=== PATIENT | female | born 1970 | race Caucasian/White ===

== ENCOUNTER 2016-11-20 18:05 | Inpatient (IN) | payer MEDICARE, MEDICAID ==
[~2016-11-20] VITALS: Ht 154.9 cm; Wt 98.2 kg
--- NOTE | ~2016-11-20 | CON ---
PATIENT'S NAME: DIONICIO CARRANZALY Justin [facility] AGE: 46 Y [address] ROOM: [place] [address] LOCATION: GPCU ADMIT DATE: 11/20/2016 Consultation DISCHARGE DATE: FAMILY PHYSICIAN: Sophie Recio APRN ATTENDING PHYSICIAN: DENIS HENDRIX DATE OF CONSULTATION: 11/21/2016 REFERRING PHYSICIAN: JORDY ROBERSON MD CHIEF COMPLAINT: Headache, recurrence/progression of secondary glioblastoma. HISTORY OF PRESENT ILLNESS: The patient is a 46-year-old female patient who was admitted to the hospital with increasing headaches. The patient's history dates back to 2002. At that time, she underwent right craniotomy and resection of brain tumor. According to the family, the tumor was low-grade. She required no chemotherapy or radiation after that surgery. She did well for 5 years. In 2007, she was diagnosed with recurrent tumor and underwent repeat craniotomy and resection. She received chemotherapy and radiation after it. She did well until last year. In April 2016, she was diagnosed with recurrence/progression. She underwent reopening of the craniotomy and resection. The pathology was consistent with glioblastoma. She was treated with chemotherapy and radiation afterward. She was also continued on dexamethasone. She slowly tapered herself off the dexamethasone; and subsequently, she started experiencing headaches. Yesterday, she had a noncontrast CT head that showed increased edema in the surgical site suspicious for recurrence/progression. I met the patient on the gallegos. She reported severe headaches. She also reported vision loss on the left side. She also reported generalized weakness, swelling on the lower extremities. She denied seizures, weakness on her hands. PAST MEDICAL HISTORY: Hypertension, sleep apnea, and glioblastoma. REVIEW OF SYSTEMS: All points review of systems were asked about. Pertinent positives were mentioned. MEDICATIONS: Listed in the patient's chart. ALLERGIES: CODEINE, TYLENOL, AND PERCOCET. PATIENT'S NAME: DIONICIO CARRANZALY Justin [facility] AGE: 46 Y [address] ROOM: [place] [address] LOCATION: GPCU ADMIT DATE: 11/20/2016 Consultation DISCHARGE DATE: FAMILY PHYSICIAN: Sophie Recio APRN ATTENDING PHYSICIAN: DENIS HENDRIX FAMILY HISTORY: She has a strong family history of cancer, her mom has breast cancer. SOCIAL HISTORY: Nonsmoker. Occasional alcohol drinking. PHYSICAL EXAMINATION: GENERAL: The patient was cooperative and pleasant. HEAD: It showed hair loss in the craniotomy area. It also showed well-healed right occipitotemporal craniotomy scar. Pupils were 3-mm and reactive. NEUROLOGIC: She was alert and oriented. She was obeying commands on her 4 extremities. The pupils were 3-mm and reactive. Visual gamez were remarkable for complete left homonymous hemianopsia. Eye movements were full. No pronator drift. She has significant proximal weakness on the lower extremities. Ankle dorsiflexion, plantarflexion exam was normal. RESPIRATORY: She was not in any respiratory distress. CARDIOVASCULAR: She has strong pulses on the upper extremities. NECK: No tenderness to palpation. No palpable masses. INVESTIGATIONS: MRI brain without and with contrast done on November 21, 2016. It showed evidence of enhancing right temporal, occipital, and parietal mass along the surgical cavity with significant surrounding vasogenic edema. She also has significant mass effect from the enhancing mass. The MRI findings are highly suggestive of recurrence/progression of the glioblastoma. IMPRESSION: A 46-year-old female patient has recurrent/progression of right temporal, occipital, and parietal glioblastoma with significant edema and mass effect. She is very symptomatic with severe headaches. She had side effects from the dexamethasone. PLAN: 1. I recommended reopening/extension of the right craniotomy and gross total resection of recurrent/progressive glioblastoma. The patient is scheduled for surgery on November 23, 2016. 2. Resume dexamethasone as per Medical Oncology. 3. Symptomatic treatment of headache. I reviewed the imaging with the patient and her family. I pointed out the recurrent glioblastoma. I also pointed out the significant edema around it. I discussed the treatment options. I discussed only chemotherapy and surgery plus chemotherapy. The patient was interested in surgery followed by chemotherapy. I clearly indicated that surgical resection of the tumor will result in resolution of the vasogenic edema and hopefully improve her PATIENT'S NAME: LIZA CARRANZA [facility] AGE: 46 Y [address] ROOM: [place] [address] [facility] ADMIT DATE: 11/20/2016 Consultation DISCHARGE DATE: FAMILY PHYSICIAN: Sophie Recio APRN ATTENDING PHYSICIAN: DENIS HENDRIX. It was pleasure taking care of this patient and thanks for having us involved. MD ERIC BOWEN/carmen /[id number] CC: MD oSphie Ramos APRN d: 11/22/16 0333 t: 11/22/16 2233, CONSULTATION REPORT
--- NOTE | ~2016-11-20 | CON ---
PATIENT'S NAME: LIZA MIGUEL [facility] AGE: 46 Y [address] ROOM: [address] [place], [place] [address] [facility] ADMIT DATE: 11/20/2016 Consultation DISCHARGE DATE: FAMILY PHYSICIAN: Sophie Recio APRN ATTENDING PHYSICIAN: DENIS HENDRIX REFERRING PHYSICIAN: JORDY MIMS MD CHIEF COMPLAINT: I was asked to evaluate the patient with glioblastoma and headaches. HISTORY OF PRESENT ILLNESS: Liza Miguel is a 46-year-old female with past history of glioblastoma multiforme with resections done previously in 2002, 2007, and the last being in April 2016. She has received concurrent radiation and chemotherapy described as Temodar following the 2007 resection, and most recently, again received concurrent radiation and Temodar following the April resection, completing that in August. She does report one cycle what sounds like monthly Temodar in September, but none since that time as followup in [place] has been difficult. She had been primarily followed in [place] by Dr. Radha Barnes and Dr. Marsh. Pathology has not been reviewed and clinic notes are not readily available at this time. The patient seemed to be a good historian accompanied by her parents. She reports that she stopped Decadron approximately a week ago because she did not like the increased edema and abdominal girth that comes along with that, and over the previous months, it sounded like she has been using it on a p.r.n. basis typically about four times a week taking 1 to 2 tablets to treat the headaches. On 10/17/2016, she touched base with Dr. Marsh with recommendations for Decadron taken daily 4 mg which she continued for a few days before stopping it entirely because of the above-noted side effects. Since stopping it, she had increasing headaches, currently 10/10 and nothing helping. She is reluctant to take a Decadron again because of those side effects. She has had increased trouble breathing, shortness of breath with activities and breathing with lying down. She also complained of bilateral lower extremity edema. PAST MEDICAL HISTORY: Includes glioblastoma multiforme, hypertension, obstructive sleep apnea, and disk herniation. She is status post craniotomies as noted above and septoplasty in 2013. She also had a disk herniation. SOCIAL HISTORY: The patient does not smoke, she quit years ago. She drinks occasionally. She is , has two children, and lives in [place], [place]. FAMILY HISTORY: The patient's mother had breast cancer, treated and cured 8 years prior. PATIENT'S NAME: LIZA MIGUEL [facility] AGE: 46 Y [address] ROOM: [place] [address] [facility] ADMIT DATE: 11/20/2016 Consultation DISCHARGE DATE: FAMILY PHYSICIAN: Sophie Recio APRN ATTENDING PHYSICIAN: DENIS HENDRIX PHYSICAL EXAMINATION: VITAL SIGNS: Blood pressure 138/69, respirations 18, pulse 100, temperature 97.6. GENERAL: The patient appears comfortable, lying in bed, eyes closed some of the visit, and mother and father both present. HEENT: Pupils are equal and round. Extraocular muscles are intact. Oral mucosa is moist and pink without erythema and without lesions. NECK: Without adenopathy. HEART: Regular rate and rhythm without murmurs. LUNGS: Clear to auscultation bilaterally without wheezing, without rhonchi. ABDOMEN: Bowel sounds positive. Nontender. The patient is obese with abdominal distention and no organomegaly is noted, but difficult exam. EXTREMITIES: With 1 to 2+ lower extremity edema. No rashes or skin changes are noted. LABORATORY DATA: Include a CMS with a BUN and creatinine of 16 and 0.8 respectively, sodium 146, potassium 3.1, chloride 110, and bicarb 24. RADIOLOGIC REVIEW: Includes MRI obtained today, demonstrated previous tumor resection from the posterior right hemisphere with a question of mass anterior to this cavity showing an irregular enhancement which could be suggestive of tumor recurrence or radiation necrosis; in total the mass plus the cavity is approximately 7 x 6 x 5 cm involving the parietal, occipital, posterior right temporal lobes. IMPRESSION AND PLAN: Liza Miguel is a 46-year-old female with a history of glioblastoma multiforme, status post resections three times dating back to 2002 and the most recent resection in April of 2016. She is status post radiation and concurrent Temodar, finishing that in August and completing one cycle of Temodar in September. She presents with increased headaches after stopping Decadron due to complaints of side effects from the steroids. An MRI does demonstrate changes in the MRI consistent with either true progression or tumor recurrence. 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 I did discuss the steroids, impression and treatment with the patient and she is agreeable to re-trying the steroid with a taper down to the lowest possible dose as tolerated as the days progress. Additionally, given the changes on the scan, provided Dr. Mims is in agreement that no surgical plan is advised at this time, then consideration with Temodar may be reasonable in this patient to help expedite the recovery from pseudoprogression. Additionally, Trental and vitamin E might be considered as well, but we will see how the steroid helps as the next 1 to 2 days progress. Additionally, the PATIENT'S NAME: LIZA MIGUEL [facility] AGE: 46 Y [address] ROOM: [place] [address] [facility] ADMIT DATE: 11/20/2016 Consultation DISCHARGE DATE: FAMILY PHYSICIAN: Sophie Recio APRN ATTENDING PHYSICIAN: DENIS HENDRIX patient, as she is from [place], has difficulty traveling to [place] for followups, and as followups here in [place] may be a lot easier for her, we may arrange for that once discharge planning is arranged. Consideration for Telemedicine appointment in the future might make the treatment for this patient more tolerable as well. MD ROSE MARIE EVANS/carmen /[id number] d: 11/22/16 0240 t: 12/03/16 1202, CONSULTATION REPORT
--- NOTE | ~2016-11-20 | DS ---
PATIENT'S NAME: LIZA CARRANZA [facility] AGE: 46 Y [address] ROOM: [id number] [place], [place] [address] LOCATION: TU ADMIT DATE: 11/20/2016 Discharge Summary DISCHARGE DATE: 11/26/2016 FAMILY PHYSICIAN: Sophie Recio APRN ATTENDING PHYSICIAN: Daniel Fraser FINAL DIAGNOSES: 1. Recurrent glioblastoma multiforme. 2. Intractable headache. 3. Chronic constipation. 4. Essential hypertension. 5. Obstructive sleep apnea with CPAP usage. 6. Use of high-risk medications; steroids. 7. Hypokalemia. PROCEDURES: She had a reopening of stitch of the right frontotemporal craniotomy and resection of recurrent GBM on November 23, 2016, with Dr. Mims. HISTORY OF PRESENT ILLNESS: For details of admission, please see the history and physical dictated by Dr. Koenig, but in short, the patient presented to the hospital with intractable headache. LABORATORY DATA: On admission, sodium 146, discharge 141. Potassium on admission was 3.1, got as low as 2.6 and at discharge 3.9. BUN on admission was 16, discharge 15. Creatinine on admission was 0.8, discharge 0.6. Liver enzymes were normal. Magnesium on admission was 1.9, most prior discharge was 2.5. Hemoglobin A1c on admission was 5.3, vitamin B12 599, folate 9.5, TSH 0.203. White blood cell count on admission was 5.2, hemoglobin 10.2, hematocrit 33.8, MCV 104.6, and platelet count 208. Most prior to discharge, hemoglobin 10.1. RADIOLOGY STUDIES: An MRI of the brain with and without contrast on admission did show that the patient had a previous tumor resection in the posterior right hemisphere. It did show that the operative cavity plus a mass anterior to the cavity with irregular enhancement. 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 MRI of the brain on the postoperatively shows that the postoperative changes there was some mass effect and edema, but it was overall stable. HOSPITAL COURSE: The patient was accepted and admitted to the hospital with increasing headache. She had been diagnosed with a glioblastoma on April 17, 2016. Underwent craniotomy and resection at that time. She also was treated with chemotherapy and radiation. She had been using Decadron, but was having difficulty with side effects and so was not compliant with it at the time of admission. An MRI was done that did show that there was a recurrent mass. PATIENT'S NAME: LIZA CARRANZA [facility] AGE: 46 Y [address] ROOM: [id number] [place], [place] [address] LOCATION: TU ADMIT DATE: 11/20/2016 Discharge Summary DISCHARGE DATE: 11/26/2016 FAMILY PHYSICIAN: Sophie Recio APRN ATTENDING PHYSICIAN: Daniel Fraser Dr., neurosurgeon, was asked to see the patient. Heme/Onc was also asked to see the patient as well. She was initially given doses of Decadron to help with the headache and given Bumex to help with the edema. Dr. Mims did see her and felt that she needed to proceed with surgery. The patient did agree to do that and wanted to proceed with surgery here at [facility]. The patient was taken to the OR on November 23, 2016. Please see Dr. Mims's op note for full details. She was admitted to the ICU postoperatively and was monitored overnight. She really did quite well. An MRI was obtained on the day postoperative that showed operative changes and edema. She was continued on the steroid. On postop day 1, she was stable enough to be transferred to the floor. PT and OT did work with her. She did have problems with significant constipation, so we did work very aggressively to get her bowels moving. It was felt that she was stable and her headache was well enough control that she was able to be discharged to home on November 26, 2016. DISCHARGE INSTRUCTIONS: 1. Have a low-sodium diet. She is advised that she could not drive. She could wash her head on November 29, 2016. She will see Dr. Mims on December 11, 2016, for staple removal. We will see Dr. Blair at that same time. MEDICATIONS: 1. BuSpar 7.5 mg twice daily. 2. Dexilant 30 mg daily. 3. Senna 68.8 mg 8 pills at bedtime. 4. Vitamin D 2000 units daily. 5. Hydrochlorothiazide 12.5 mg daily. 6. Potassium 40 mEq twice daily. 7. Restasis eyedrops 1 placed in each eye. 8. Linzess 145 mcg daily. 9. Pristiq 50 mg daily. 10. Decadron 2 mg twice daily through December 02, 2016, at which time, she will go to 2 mg daily and stop on December 08, 2016. 11. MiraLAX 17 g twice daily. 12. [place] 5/325 one every 2 hours as needed for pain. OVERALL PROGNOSIS AT DISCHARGE: Fair. I did discuss this with the patient along with her parents present. She did voice understanding. NICOLÁS POLANCO MD LAW/modl PATIENT'S NAME: LIZA CARRANZA [facility] AGE: 46 Y [address] ROOM: [place] [address] LOCATION: [facility] ADMIT DATE: 11/20/2016 Discharge Summary DISCHARGE DATE: 11/26/2016 FAMILY PHYSICIAN: Sophie Recio APRN ATTENDING PHYSICIAN: Daniel Fraser /[id number] CC: MONAE Donaldson MD Nicholas J Hartl, MD d: 11/27/16 0306 t: 12/05/16 1643, DISCHARGE SUMMARY
--- NOTE | ~2016-11-20 | OR ---
PATIENT'S NAME: DIONICIO CARRANZALY Justin [facility] AGE: 46 Y [address] ROOM: [place] [address] LOCATION: GICU ADMIT DATE: 11/20/2016 OR/Procedure Report DISCHARGE DATE: FAMILY PHYSICIAN: Sophie Recio APRN ATTENDING PHYSICIAN: DENIS HENDRIX SURGEON: Ze Mims MD PUSH BUTTON SWITCH ASSEMBLER: DATE OF PROCEDURE: 11/23/2016 ANESTHESIOLOGIST: José Holland MD ANESTHESIA: General. COMPLICATIONS: None. ESTIMATED BLOOD LOSS: Less than 200 mL. PREOPERATIVE DIAGNOSIS: Recurrent right temporal/parietal/occipital glioblastoma, headaches. POSTOPERATIVE DIAGNOSIS: Recurrent right temporal/parietal/occipital glioblastoma, headaches. PROCEDURES PERFORMED: 1. Stealth navigation system for resection of the tumor. 2. Reopening and extension right frontotemporoparietal craniotomy and gross total resection of a recurrent glioblastoma. CLINICAL HISTORY/INDICATIONS FOR PROCEDURE: The patient is a 46-year-old female patient, who had the third craniotomy and resection of a brain tumor in April 2016, presented to the hospital with increasing headaches. The pathology at that time was consistent with a glioblastoma. She was given chemotherapy and started on dexamethasone. The patient had a repeat brain MRI in our hospital and that showed evidence of tumor recurrence with significant mass effect and midline shift. I discussed the treatment options with the patient. I recommended surgical resection of the tumor to decrease the mass effect followed by chemotherapy. I discussed the procedure itself, the benefits, and all the risks associated with it. The patient was interested in proceeding so she was brought in for the surgery. DESCRIPTION OF PROCEDURE: The patient was seen in the preoperative care unit and the correct side was marked. Then, she was transferred to the main operating theater, was given general anesthetic and underwent endotracheal intubation without complications. Preoperative antibiotics, steroid, and mannitol were given. Pugh catheter, calf compressors were used throughout PATIENT'S NAME: LEILA CARRANZABERLY Justin [facility] AGE: 46 Y [address] ROOM: [place] [address] LOCATION: GICU ADMIT DATE: 11/20/2016 OR/Procedure Report DISCHARGE DATE: FAMILY PHYSICIAN: Sophie Recio APRN ATTENDING PHYSICIAN: DENIS HENDRIX the procedure. The patient was positioned in a lateral position with the right side up and all her joints and bony prominences were securely padded. The patient's head was then clamped in Sugita frame and secured to the table. The patient was then registered to the Pop.it navigation system with good accuracy. We navigated the extent of the tumor on the scalp and based on that, we marked a U-shaped incision. The anterior arm of the incision starts at the right temporal process of the zygoma and the posterior arm incorporates the previous craniotomy incision. The hair overlying the incision was clipped off. The surgical site was then prepped and draped as per usual. The proposed skin incision was infiltrated with 0.25% Marcaine with epinephrine. The skin was sharply opened down to the bone and Coty clips were used to control the bleeding. Skin flap was reflected inferiorly and held out of the way using fishhooks. The previous craniotomy flap was identified and elevated without complications. The dura was stuck to the inside of the craniotomy. Then, I used the Stealth navigation system to navigate the extent of the tumor in front of the previous craniotomy flap and based on that, another craniotomy flap was elevated without complications. I then navigated the extent of the tumor on the dura and based on that, the dura was opened. Given the previous surgery, there were significant adhesions between the dura and the brain and that required more time and caution to perform in order to prevent injury. The dura was opened without complications. Then, using the Stealth navigation system, I managed to dissect in the tumor brain interface. I started inferiorly, then posteriorly, then superiorly, and finally along the right lateral ventricle. Throughout the resection, I used the Stealth navigation system to hopefully achieve a gross total resection. I got into the lateral ventricles and that was sealed using Gelfoam. All the tumor tissue was sent out for pathological analysis. At the end, I checked the extent of the resection using the Stealth system and I was satisfied with that. I had no complications during the resection. Then, I proceeded to hemostasis and closure. The wound was copiously irrigated. The brain was lined up with one layer of Surgicel. Then, the dura was repaired using dural repair graft that was anastomosed to the dura with 4- 0 Nurolon in a watertight fashion. The bone flaps were then anchored to the skull with titanium plates and mini screws. The wound was then washed using bacitracin irrigation. Skin was then reapproximated using 2-0 Vicryl to the galea and lyle and sutures for the skin. Sterile dressing was applied. At the end of the operation, the instrument and sponge counts were correct. The patient tolerated the operation without complications. This case was substantially difficult given the three previous surgeries, amount of the scar tissue, and the size of the tumor. This case required more time and caution to perform in order to prevent neurological injury. PATIENT'S NAME: LIZA CARRANZA [facility] AGE: 46 Y [address] ROOM: [place] [address] LOCATION: GICU ADMIT DATE: 11/20/2016 OR/Procedure Report DISCHARGE DATE: FAMILY PHYSICIAN: Sophie Recio APRN ATTENDING PHYSICIAN: DENIS HENDRIX MD ERIC BOWEN/carmen /[id number] CC: MONAE Donaldson MD d: 11/23/16 2327 t: 11/24/162, OPERATIVE SUMMARY
--- NOTE | ~2016-11-20 | HP ---
[facility]GE[facility] 46 Y [address] ROOM: [place] [address] LOCATION: GPCU ADMIT DATE: 11/20/2016 History & Physical DISCHARGE DATE: FAMILY PHYSICIAN: Sophie Recio APRN ATTENDING PHYSICIAN: DENIS HENDRIX DATE OF SERVICE:11/21/16 CHIEF COMPLAINT: Headache. HISTORY OF PRESENT ILLNESS: A 46-year-old lady with a past medical history of glioblastoma multiforme with multiple resections done back in 2002, 2007, and latest being in April 2016, status post chemo and radiation, which was done until August, has an oncologist in [place], Dr. Radha Barnes, presented to the outside facility with a headache, which is located at the front, dull and achy, 7/10, increases with movement and relieves with ibuprofen, associated with some nausea, not associated with any weakness, any blurry vision. The patient stated that she was on Decadron since the chemotherapy done in August, and she had been taking it on an off and stop taking the Decadron in last 1 week because of the side effects, which included massive leg swelling as well as getting her bloated. On further inquiry, she denied having any trouble with the eyes, any trouble swallowing, any chest pain, any shortness of breath, any abdominal pain, any diarrhea, or any constipation, but did endorse having extremity swelling. She denied having any PND or orthopnea. REVIEW OF SYSTEMS: All other systems reviewed and were negative except what is mentioned in the HPI. PAST MEDICAL HISTORY: Glioblastoma multiforme, hypertension, obstructive sleep apnea, disk herniation. MEDICATIONS: Please see MAR. ALLERGIES: THE PATIENT IS ALLERGIC TO PERCOCET, CODEINE, WELL TYLENOL. FAMILY HISTORY: Family history is significant for breast cancer in mother. SOCIAL HISTORY: [facility]GE[facility] 46 Y [address] ROOM: [place] [address] LOCATION: GPCU ADMIT DATE: 11/20/2016 History & Physical DISCHARGE DATE: FAMILY PHYSICIAN: Sophie Recio APRN ATTENDING PHYSICIAN: RUMA,DENIS Never a smoker. Drinks alcohol once in a while. PHYSICAL EXAMINATION: VITAL SIGNS: Blood pressure 138/69, respiratory rate 18, pulse 100, temperature 97.6. GENERAL: No acute distress. Alert and oriented x3. HEENT: HEAD: Previous craniotomy scar maki noted. Eyes are nonicteric. No pallor. Oropharynx: Moist mucous membranes. CARDIOVASCULAR: S1 and S2. No murmurs, gallops, or rubs. LUNGS: Clear to auscultation bilaterally. ABDOMEN: Soft, nontender, nondistended. Bowel sounds present. EXTREMITIES: +3 extremity edema. PSYCH: Normal affect, mood, and speech. NEURO: Cranial nerves 2 through 12 intact. No motor or sensory deficit present. SKIN: No rashes noted. MUSCULOSKELETAL: No muscle tenderness or swelling noted. LABORATORY AND DIAGNOSTIC DATA: CT scan done in the outside facility today showed previous resection of the right hemisphere with some edema in the white matter, which is new from the previous CAT scan. Lab work from outside facility was impressive for a potassium of 2.8. CBC was remarkable for hemoglobin of 10 with the MCV is 104.0. ASSESSMENT: 1. Headache. 2. Glioblastoma multiforme. 3. Cushingoid features. 4. Hypertension. PLAN: We are going to admit this patient to inpatient. We will provide pain control overnight. Neurosurgery has been consulted, and an MRI of the head with and without contrast has been ordered. The patient wants to obtain a second opinion from Hematology as well as oncologist for regarding her chemoradiation as well as Decadron intake. We will consult Heme-Onc in the morning. Low- sodium diet overnight. We will give her one time dose of fentanyl 12.5 mg to help her with the headache. Zofran for nausea control. SCDs for DVT prophylaxis as far as now and chemical prophylaxis in the morning. All her home medications have been restarted. The patient is full code. PATIENT'S NAME: LIZA CARRANZA [facility] AGE: 46 Y [address] ROOM: [place] [address] [facility] ADMIT DATE: 11/20/2016 History & Physical DISCHARGE DATE: FAMILY PHYSICIAN: Sophie Recio APRN ATTENDING PHYSICIAN: DENIS HENDRIX MD MAK/leol /[id number] D: [id number] T: [id number] HISTORY & PHYSICAL
[~2016-11-20 18:05] MED LIST: BUSPIRONE HCL15 MG PO; DESVENLAFAXINE50 M1 PO; DEXILANT30 MG PO; MENOPAUSE RELI1 EACH PO; NATURAL SENNA8.6 MG PO; VITAMIN D-32000 UNI1 PO; WELLBUTRIN XL150 M1 PO
[2016-11-20] MEDS ORDERED: HYDRODIURIL25 MG PO (21:05)
[2016-11-20] MEDS ORDERED: K-TAB ER20 MEQ PO (21:06)
[2016-11-20] MEDS ORDERED: LINZESS145 MCG PO (21:06)
[2016-11-20] MEDS ORDERED: RESTASIS1 EACH OPHTH (21:06)
[2016-11-20] MEDS ORDERED: PRISTIQ50 MG PO (21:07)
--- NOTE | 2016-11-20 21:55 | NUR ---
Patient came by private car from [place]. Cheif complaint is a frontal headache/blurry vision that has gotten worse over the past few days. She went to her primary care provider with a headache and increase edema. Labs and head CT w/o contrast done there. She had a tumor removed from her head in Apr 2016, radation until Aug 2016, adn she need chemo but hasn't had any tx yet. She also stopped taking her decadron because of the side effects. She has pitting edema to bilateral lower extremities. She also has a francis face from the steroids. She is A/Ox3. VSS on RA. IV to Lt AC saline locked. Lungs clear. Bowel sounds present, BM 3/7. Pitting edema to lower extremities. Patient states she fells like a water balloon. Frontal headache and blurry vision is her complaints. [facility] notified of patients arrival.
[2016-11-21 00:47] LABS: ANION GAP 15.1 (10.0-19.0); BLOOD UREA NITROGEN 16 mg/dL (6-24); CHLORIDE 110 mMol/L (96-110); CO2 24 mMol/L (22-32); CREATININE 0.8 mg/dL (0.5-1.1); ESTIMATED GFR (MDRD EQUATION) > 60; POTASSIUM 3.1 mMol/L (3.7-5.1)
[2016-11-21 00:59] LABS: SODIUM 146 mMol/L (135-145)
[2016-11-21 03:37] LABS: HEMATOCRIT 33.8 % (33.0-46.0); HEMOGLOBIN 10.2 g/dL (10.0-15.0); MCH 31.6 pg (27.0-34.0); MCHC 30.2 gm/dL (32.0-36.5); MCV 104.6 fl (83.0-98.0); PLATELET COUNT 208 K/uL (150-450); RBC 3.23 M/uL (3.50-5.50); RDW-CV 16.5 % (11.9-14.6); WBC 5.2 K/uL (4.0-11.0)
[2016-11-21 03:56] LABS: ANION GAP 12.3 (10.0-19.0); BLOOD UREA NITROGEN 14 mg/dL (6-24); CALCIUM 7.8 mg/dL (8.5-10.5); CHLORIDE 109 mMol/L (96-110); CO2 25 mMol/L (22-32); CREATININE 0.7 mg/dL (0.5-1.1); ESTIMATED GFR (MDRD EQUATION) > 60; POTASSIUM 3.3 mMol/L (3.7-5.1); SODIUM 143 mMol/L (135-145)
--- NOTE | 2016-11-21 04:31 | NUR ---
Patient A/Ox3. VSS on RA. One assist. IV to LT AC saline locked. Lungs clear. Bowel sounds present, 1loose stool this shift. Headache still very severe, morphine, Fent, tylenol given with no relief. Rash develop after fent and CT of head, Patient states has had both before with no complications. Benadryl IV given x1.
[2016-11-21 04:52] LABS: ABSOLUTE NEUTROPHIL CT (ANC) 4.2 K/uL (1.8-7.8); BANDED NEUTROPHIL # 0.1 K/uL (0.0-0.1); BANDED NEUTROPHILS % 2 %; LYMPHOCYTE # 0.7 K/uL (0.8-4.0); LYMPHOCYTE % 13 %; MONOCYTE # 0.3 K/uL (0.0-1.0); SEGMENTED NEUTROPHIL # 4.1 K/uL (1.8-7.8); SEGMENTED NEUTROPHIL % 79 %
--- NOTE | 2016-11-21 16:17 | NUR ---
Significant Event: Patient is A/O X3, VSS stable for the most part with pulse reaching high 140's ocassionally. MD was notified. Patient has frequent headache pain but refused medications for pain management also refused decadron. Patient is weak when tranferring to and from the restroom. Stools contain a small to moderate amount of blood, MD notified. Patient states that blood is from [place]. MRI reports still pending. Patient and family upset that Dr. Mims has not seen, explained that Dr. mims is in surgery today and will see them when available.
[2016-11-21 17:37] LABS: ALBUMIN 3.1 gm/dL (3.5-5.0); ANION GAP 11.6 (10.0-19.0); BLOOD UREA NITROGEN 14 mg/dL (6-24); CALCIUM 7.8 mg/dL (8.5-10.5); CHLORIDE 100 mMol/L (96-110); CO2 31 mMol/L (22-32); CREATININE 0.9 mg/dL (0.5-1.1); ESTIMATED GFR (MDRD EQUATION) > 60; MAGNESIUM 1.9 mg/dL (1.3-2.6); PHOSPHORUS 2.7 mg/dL (2.5-4.9); SODIUM 140 mMol/L (135-145)
[2016-11-21 17:46] LABS: POTASSIUM 2.6 mMol/L (3.7-5.1)
--- NOTE | 2016-11-22 04:29 | NUR ---
Patient A/O x3. VSS on RA. Up standby assist. Lungs clear. Bowel sounds present. New IV to Lt forarm NS at 40ml/hr. Replaced KCL and MG. Complaints of headache, Decadron restarted did help with the pain. [place] x1 with little relief. Dr. Mims saw patient and states that she needs to have surgery again for resection of tumor, possible saturday for surgery. Showered last night.
[2016-11-22 04:31] LABS: ALBUMIN 2.7 gm/dL (3.5-5.0); BLOOD UREA NITROGEN 16 mg/dL (6-24); CALCIUM 7.7 mg/dL (8.5-10.5); CHLORIDE 105 mMol/L (96-110); CO2 25 mMol/L (22-32); CREATININE 0.7 mg/dL (0.5-1.1); ESTIMATED GFR (MDRD EQUATION) > 60; MAGNESIUM 2.5 mg/dL (1.3-2.6); SODIUM 140 mMol/L (135-145)
[2016-11-22 04:32] LABS: ANION GAP 13.8 (10.0-19.0); PHOSPHORUS 1.9 mg/dL (2.5-4.9); POTASSIUM 3.8 mMol/L (3.7-5.1)
[2016-11-22 11:07] LABS: CREATININE 0.8 mg/dL (0.5-1.1); ESTIMATED GFR (MDRD EQUATION) > 60
--- NOTE | 2016-11-22 13:51 | NUR ---
Introduced self and care management services to patient. Lives in [place], dad and sister live nearby. Too soon to know what dc planning needs will be, healthcare account manager will be following to assist with dc planning as needs are identified.
--- NOTE | 2016-11-22 16:52 | NUR ---
Significant Event:UP AD YANA IN ROOM AND IN [facility] WITH PHYSICAL THERAPY. COMPLAINED OF HEAD ACHE THIS AM BUT WAS RELIEVED AFTER SHE WAS GIVEN HER AM DOSE OF DECADRON. DRINKS LOTS OF COFFEE IN THE MORNINGS. LOTS OF EDEMA TO LOWER EXTREMITIES. DR ROBERSON HAS NOT BEEN IN TO SEE PT YET TODAY TO WRITE FOR ORDERS FOR SURGERY TOMORROW. VERY PLEASANT AND COOPERATIVE WITH CARES Follow up:POSSIBLE OR TOMORROW FOR TURMOR REMOVAL
[2016-11-23 02:05] LABS: HEMATOCRIT 27.8 % (33.0-46.0); HEMOGLOBIN 8.8 g/dL (10.0-15.0); IMMATURE GRANULOCYTE # 0.1 K/uL (0.0-0.3); IMMATURE GRANULOCYTE % 1.3 %; LYMPHOCYTE # 0.7 K/uL (0.8-4.0); LYMPHOCYTE % 9.3 %; MCH 32.2 pg (27.0-34.0); MCHC 31.7 gm/dL (32.0-36.5); MCV 101.8 fl (83.0-98.0); MONOCYTE # 0.7 K/uL (0.0-1.0); MPV 9.1 fl (9.4-12.4); NEUTROPHIL # (ANC) 6.4 K/uL (1.8-7.8); NEUTROPHIL % 80.4 %; NRBC % 0 /100WBC (0-0.00); PLATELET COUNT 202 K/uL (150-450); RBC 2.73 M/uL (3.50-5.50); RDW-CV 15.9 % (11.9-14.6); WBC 7.9 K/uL (4.0-11.0)
[2016-11-23 02:16] LABS: PTT 25 SECONDS (25-32)
[2016-11-23 02:22] LABS: ALBUMIN 2.7 gm/dL (3.5-5.0); ALK PHOS 39 IU/L (33-138); ALT 38 IU/L (12-78); ANION GAP 13.5 (10.0-19.0); AST 14 IU/L (10-40); BLOOD UREA NITROGEN 13 mg/dL (6-24); CHLORIDE 105 mMol/L (96-110); CO2 26 mMol/L (22-32); CREATININE 0.6 mg/dL (0.5-1.1); ESTIMATED GFR (MDRD EQUATION) > 60; POTASSIUM 3.5 mMol/L (3.7-5.1); SODIUM 141 mMol/L (135-145); TOTAL BILIRUBIN 0.3 mg/dL (0.0-1.5); TOTAL PROTEIN 5.4 g/dL (6.0-8.4)
[2016-11-23 02:27] LABS: INR - (THERAPEUTIC) 0.9 (0.9-1.1); PROTIME 9.8 SECONDS (9.6-11.1)
[2016-11-23 02:28] LABS: PHOSPHORUS 1.4 mg/dL (2.5-4.9)
--- NOTE | 2016-11-23 04:17 | NUR ---
Significant Event: A/O x3. Afebrile. Frontal headache around 0200, denied pain medication/nonpharm intervention. Stated "it won't help at all". VSS on RA. LS clear/dim. Refused senekot. Tachy rates 90-120s.NPO since midnight. NS @ 75/hr. KPhos IV given. Risks and benefits discussed by Dr. Mims. Consents have been signed. Follow up: Surgery today.
[2016-11-24 05:00] LABS: BASOPHIL % 0.1 %; HEMOGLOBIN 10.2 g/dL (10.0-15.0); IMMATURE GRANULOCYTE # 0.2 K/uL (0.0-0.3); IMMATURE GRANULOCYTE % 1.9 %; LYMPHOCYTE # 0.8 K/uL (0.8-4.0); LYMPHOCYTE % 8.3 %; MCH 32.5 pg (27.0-34.0); MCHC 32.9 gm/dL (32.0-36.5); MCV 98.7 fl (83.0-98.0); MONOCYTE # 0.9 K/uL (0.0-1.0); MONOCYTE % 9.5 %; MPV 9.7 fl (9.4-12.4); NEUTROPHIL # (ANC) 7.6 K/uL (1.8-7.8); NEUTROPHIL % 80.2 %; NRBC % 0.2 /100WBC (0-0.00); PLATELET COUNT 190 K/uL (150-450); RBC 3.14 M/uL (3.50-5.50); WBC 9.4 K/uL (4.0-11.0)
[2016-11-24 05:01] LABS: RDW-CV 19.4 % (11.9-14.6)
[2016-11-24 05:02] LABS: ALBUMIN 2.7 gm/dL (3.5-5.0); ALK PHOS 43 IU/L (33-138); ALT 45 IU/L (12-78); ANION GAP 13.6 (10.0-19.0); AST 24 IU/L (10-40); BLOOD UREA NITROGEN 9 mg/dL (6-24); CALCIUM 7.7 mg/dL (8.5-10.5); CHLORIDE 111 mMol/L (96-110); CO2 24 mMol/L (22-32); CREATININE 0.8 mg/dL (0.5-1.1); ESTIMATED GFR (MDRD EQUATION) > 60; POTASSIUM 3.6 mMol/L (3.7-5.1); SODIUM 145 mMol/L (135-145); TOTAL PROTEIN 5.2 g/dL (6.0-8.4)
[2016-11-24 05:04] LABS: TOTAL BILIRUBIN 0.5 mg/dL (0.0-1.5)
--- NOTE | 2016-11-24 05:58 | NUR ---
PT REMAINS A/O X3, GOOD STRENGTH THROUGHOUT, HEADACHE PRESENT IN FRONTAL AREA AND INCISION AREA. DIFFICULTY WITH PAIN MANAGEMENT THIS SHIFT. NORCO, PO DILAUDID, AND IV DILAUDED ATTEMPTED WITH MINIMAL EFFECT. AMBULATED IN ROOM WITH 1PA. REMAINS SR ON MONITOR, BP STABLE, NO PRN MEDS FOR BP CONTROL NEEDED. ART LINE REMOVED THIS SHIFT. O2 TITRATED OFF. PT COMPLAINS OF CONSITIPATION, NO BM, BS PRESENT. MONTANO REMOVED THIS SHIFT. DRESSING TO HEAD REMAINS INTACT WITH VERY SMALL AMOUNT OF SHADOWING. PIV X2 REMAIN INTACT AND PATENT. PT TO MRI AND BACK WITHOUT INCIDENT OTHER THAN DIFFICULTY WITH PAIN CONTROL. REBECCA GRACIA RN
--- NOTE | 2016-11-24 09:31 | NUR ---
A - PT SCREENED D/T LOS. S/P TUMOR RESECTION FOR GLIOBLASTOMA. 1-3+ EDEMA. MEAL INTAKE ONLY AVAILABLE FOR 1 DAY SINCE ADMIT. HT: 61" WT: 216# BMI: 39.6 LABS: K+ 3.6, GLU 109, ALB 2.7, PHOS 2.4 MEDS: DECADRON, REGLAN, IVF, BOWEL/NAUSEA, HYDRODIURIL, PROTONIX, ANCEF DIET: REG. INTAKE: 75-100% x 1 DAY NEEDS: 9032-6959 KCAL (15-20 KCAL/KG), 78-98 G PRO (0.8-1 G/KG), 2450 ML FLUID (25 ML/KG) D - INADEQUATE NUTRIENT INTAKE R/T DECREASED APPETITE?, SURGERY AEB INTAKE RECORD. I - GOAL FOR INTAKE 50-100% FOR DURATION OF STAY. WILL ADD ENSURE @ B TO INC NUTRIENT INTAKE M/E - WILL MONITOR INTAKE F/U IN 3-5 DAYS.
--- NOTE | 2016-11-24 15:17 | NUR ---
Patient oriented x3, denies N/T. Speech slightly slow but she states that is her baseline. SR with SBP stable. Remains on room air, lungs clear and dim. Regular diet. Ambulates to bathroom. C/o constipation, mag citrate & Dulcolax supp given without results. Does have routine supp until BM. [place] & dilaudid PO given for pain.
--- NOTE | 2016-11-24 16:33 | NUR ---
Significant Event: Patient transferred from ICU to NTU at 1537 per w/c accompanied by RESEARCH ATTORNEY. A/O x 3. Rates pain 10/10 to front and right side of head. States this is tolerable and goal pain numbner is 7/10. POD # 1 craniotomy to right side of head. Surgical site dsg to right side of head dry/intact with a scant amount of shadow drainage. Denies N/T. States blurred vision is chronic and no worse than prior to craniotomy. Equal strength throughout. IV to right and left upper extremity both saline locked. ambulates with gait belt and one assist. voids without difficulty. Large BM after transfer from ICU to NTU. Per ICU has dizziness when standing.
--- NOTE | 2016-11-25 05:19 | NUR ---
Significant Event: Patient A/O x 3. Perrla. Denies N/T. Headache to frontal lobe this shift, intermittent pain. Given [employer] x 1 tab last at 2233. Dilaudid given x 1 tab last at 51, relief noted. C/O dizziness once while ambulating, otherwise no dizziness, or blurred vision. Ambulates well with 1 assist, gaitbelt. Portable tele. Generalized edema. Lung sounds clear on room air. Bowels active, multiple watery stools. Patient stated at beginning of shift she felt constipated and wanted every laxative available, had multiple watery stools this shift. IV to right AC saline locked. VSS. Afebrile. Follow up: Monitor pain.
[2016-11-25 05:31] LABS: BASOPHIL % 0.1 %; HEMATOCRIT 31.5 % (33.0-46.0); HEMOGLOBIN 10.1 g/dL (10.0-15.0); IMMATURE GRANULOCYTE # 0.1 K/uL (0.0-0.3); IMMATURE GRANULOCYTE % 1.1 %; LYMPHOCYTE # 0.7 K/uL (0.8-4.0); LYMPHOCYTE % 7.3 %; MCH 32.2 pg (27.0-34.0); MCHC 32.1 gm/dL (32.0-36.5); MCV 100.3 fl (83.0-98.0); MPV 9.4 fl (9.4-12.4); NEUTROPHIL # (ANC) 7.5 K/uL (1.8-7.8); NEUTROPHIL % 80.5 %; NRBC % 0.2 /100WBC (0-0.00); PLATELET COUNT 184 K/uL (150-450); RBC 3.14 M/uL (3.50-5.50); WBC 9.3 K/uL (4.0-11.0)
[2016-11-25 05:57] LABS: ALBUMIN 2.7 gm/dL (3.5-5.0); ALK PHOS 46 IU/L (33-138); ALT 35 IU/L (12-78); ANION GAP 8.9 (10.0-19.0); AST 17 IU/L (10-40); CALCIUM 8.4 mg/dL (8.5-10.5); CHLORIDE 105 mMol/L (96-110); CO2 31 mMol/L (22-32); CREATININE 0.6 mg/dL (0.5-1.1); ESTIMATED GFR (MDRD EQUATION) > 60; POTASSIUM 3.9 mMol/L (3.7-5.1); SODIUM 141 mMol/L (135-145); TOTAL BILIRUBIN 0.6 mg/dL (0.0-1.5); TOTAL PROTEIN 5.6 g/dL (6.0-8.4)
[2016-11-25 06:00] LABS: BLOOD UREA NITROGEN 15 mg/dL (6-24)
--- NOTE | 2016-11-25 17:19 | NUR ---
Significant Event: a/o x 3. pain to frontal head and right side surgical site. equal strength throughout. speech slow and clear. room air. portable tele with sinus arrythmia. ambulates ad murray in room. continent of bowel and bladder. continued to have watery stools part of day shift and refused scheduled stool softeners today. dsg to right side of head dry/intact. prn norco for pain management. discharge plan- home tomorrow.
--- NOTE | 2016-11-26 05:04 | NUR ---
Significant Event: Patient alert/oriented x 3. Perrla. Denies dizziness. Headache to frontal lobe for most of shift. Denies N/T. Pain to bilateral feet from edema, right foot is worse. Moves all extremities spontaneously and to command. Left leg slightly weaker than left. Portable tele. SR. Generalized edema, pitting in lower extremities. Afebrile. Lungs clear on room air. Been having watery,loose stools. Ambulates SBA. Incision to right parietal lobe, dressing intact. No IV access. [place] given last at 0333, relief noted. VSS. Afebrile. Follow up: Plan to be discharged to home today.
[2016-11-26] MEDS ORDERED: DECADRON1 MG PO ×2 (12:51→12:52)
[2016-11-26] MEDS ORDERED: MIRALAX17 GM PO (12:56)
[2016-11-26] MEDS ORDERED: NORCO 5-325 TA1 EACH PO (13:00)
--- NOTE | 2016-11-26 13:51 | NUR ---
ALL BELONGINGS GATHERED AND SENT WITH PATIENT. NEW MEDS AND DISCHARGE INFO REVIEWED WITH PATIENT AND FAMILY. NO FURTHER QUESTIONS. TAKEN TO FRONT LOBBY WHERE PARENTS TRANSPORTED HOME.
--- NOTE | 2016-11-28 16:09 | NUR ---
Post hospitalization follow up call made to patient. Patient will have a follow up appointment with both Dr Mims and Dr. Blair on December 11. Verbalized that she has no questions concerning her medication. States that she is very pleased with [facility] as a facility, she started that the staff was "great" and the food was "good".
== END 2016-11-26 13:35 | disposition disaster alternative care site (69) | DRG 25 ==
LOC: GPCU 20:10 → GICU 11-23 10:55 → GNTU 11-24 15:33
PROVIDERS: Internal Medicine; Neurological Surgery; ADMIT Family Medicine
DX: C71.4 Malignant neoplasm of occipital lobe (principal); G93.6 Cerebral edema; I47.1 Supraventricular tachycardia; H53.462 Homonymous bilateral field defects, left side; C71.2 Malignant neoplasm of temporal lobe; C71.3 Malignant neoplasm of parietal lobe; G96.12 Meningeal adhesions (cerebral) (spinal); G47.33 Obstructive sleep apnea (adult) (pediatric); K58.1 Irritable bowel syndrome with constipation; R51 Headache; I10 Essential (primary) hypertension; K59.00 Constipation, unspecified; T38.0X5A Adverse effect of glucocorticoids and synthetic analogues, initial encounter; Y92.009 Unspecified place in unspecified non-institutional (private) residence as the place of occurrence of the external cause; E87.6 Hypokalemia; D64.9 Anemia, unspecified; Z92.21 Personal history of antineoplastic chemotherapy; Z92.3 Personal history of irradiation; Z79.52 Long term (current) use of systemic steroids; Z91.14 Patient's other noncompliance with medication regimen; Z80.3 Family history of malignant neoplasm of breast
CPT/HCPCS: A9577; C1713; J0690; J1100; J1170; J1200; J2001; J2270; J2405; J3010; J3475; J3480; J7030; J7050; P9016

== ENCOUNTER → 2017-01-01 | Outpatient (CLI) | payer MEDICARE, MEDICAID ==
[~2017-01-01] MED LIST changes: +DECADRON1 MG PO; +HYDRODIURIL25 MG PO; +K-TAB ER20 MEQ PO; +LINZESS145 MCG PO; +MIRALAX17 GM PO; +NORCO 5-325 TA1 EACH PO; +PRISTIQ50 MG PO; +RESTASIS1 EACH OPHTH
== END | disposition disaster alternative care site (69) ==
LOC: GRAD 10:32
DX: C71.9 Malignant neoplasm of brain, unspecified (principal); R60.0 Localized edema; Z98.890 Other specified postprocedural states
CPT/HCPCS: A9577

== ENCOUNTER → 2017-02-21 | Outpatient (CLI) | payer MEDICARE, MEDICAID | END | disposition disaster alternative care site (69) | LOC: GRAD 13:04 | DX: C71.8 Malignant neoplasm of overlapping sites of brain (principal); Z98.890 Other specified postprocedural states | CPT/HCPCS: A9577 ==